=== PATIENT | male | born 1995 | race Caucasian/White ===

== ENCOUNTER → 2016-11-14 | Outpatient (CLI) | payer OTHER | END | disposition home or self-care (01) | LOC: C.RDSM 14:15 | PROVIDERS: ATTEND Family Medicine | DX: M25.562 Pain in left knee (principal) ==

== ENCOUNTER → 2016-11-19 | Outpatient (CLI) | payer OTHER ==
--- NOTE | 2016-11-19 19:24 | DIAGNOSTIC IMAGING REPORT ---
MRI OF THE LEFT KNEE CLINICAL HISTORY: Left knee pain. Osteochondral defect. COMPARISON STUDY: Progressive left knee dated 11/06/2016. TECHNIQUE: MRI of the left knee was performed utilizing proton density, T1, and T2-weighted sequences in the axial, sagittal, coronal planes. IV contrast was not administered for this examination. FINDINGS: Menisci: The medial and lateral menisci are intact. Ligaments: The anterior and posterior cruciate ligaments are intact. The medial and lateral collateral ligaments are within normal limits. Extensor mechanism: The extensor mechanism is intact. Hoffa's fat pad is normal in appearance. Articular cartilage and bone: There is a large osteochondral defect identified along the weightbearing surface of the medial femoral condyle. The defect measures 1.6 cm in AP diameter and 1.6 cm in width. There is fluid undercutting the fragment indicating instability. There is full-thickness cartilaginous fissuring identified along the lateral aspect of the defect seen on coronal image #16. There is also full-thickness cartilage loss along the posterior margin of the defect. Marrow edema is identified in the underlying medial femoral condyle. There is drop in T1 signal identified within the loose fragment which may represent developing osteonecrosis. The articular cartilage is well-maintained in the lateral and patellofemoral compartments. A calcified fabella is incidentally noted. Joint effusion: There is a small joint effusion. A calcified joint body is suggested superior to the tibial spine on coronal image #17. Soft tissues: The musculature surrounding the knee joint is normal in bulk and signal intensity. IMPRESSION: 1. There is a large osteochondral defect identified along the weightbearing surface of the medial femoral condyle. There is fluid undercutting the fragment indicating instability. 2. There is drop in T1 signal within the osteochondral fragment. This may represent developing osteonecrosis. 3. There is full-thickness cartilage loss along the lateral and posterior margins of the osteochondral defect. 4. There is marrow edema identified in the underlying medial femoral condyle. 5. The menisci, cruciate ligaments, and collateral ligament are maintained. 6. Small joint effusion. A small joint body is suspected. Electronically signed by: Walker Siddiqui M.D. 11/19/2016 7:22 PM Dictated Date/Time: 11/19/2016 7:15 PM
== END | disposition home or self-care (01) ==
LOC: C.MRI 18:18
PROVIDERS: ATTEND Family Medicine
DX: M95.8 Other specified acquired deformities of musculoskeletal system (principal); M21.962 Unspecified acquired deformity of left lower leg

== ENCOUNTER → 2017-02-27 | Outpatient (CLI) | payer OTHER ==
--- NOTE | 2017-02-27 12:18 | DIAGNOSTIC IMAGING REPORT ---
LEFT KNEE 3 VIEWS CLINICAL HISTORY: Left knee pain COMPARISON: None. DISCUSSION: There is a 24 mm osteochondral defect arising from the medial femoral condyle. There is equivocal trace joint effusion. IMPRESSION: 24 mm osteochondral defect arising from the medial femoral condyle. Electronically signed by: Lev Alford M.D. 02/27/2017 12:17 PM Dictated Date/Time: 02/27/2017 12:16 PM
== END | disposition home or self-care (01) ==
LOC: C.RDSM 12:04
PROVIDERS: ATTEND Orthopaedic Surgery
DX: M93.262 Osteochondritis dissecans, left knee (principal)

== ENCOUNTER → 2017-05-18 | Outpatient (CLI) | payer OTHER ==
--- NOTE | 2017-05-18 13:33 | DIAGNOSTIC IMAGING REPORT ---
AP STANDING VIEW OF BOTH KNEES; 3 VIEWS LEFT KNEE CLINICAL HISTORY: Osteochondral lesion of the left knee. FINDINGS: An AP standing view of both knees with crosstable lateral, tunnel, and sunrise views of the left knee are compared to study dated 02/27/2017 and correlated with MRI of the left knee dated 11/19/2016. The skeletal structures are well mineralized. No fracture is seen. The joint spaces are preserved. A 2.5 cm osteochondral lesion is again noted along the weightbearing surface of the medial femoral condyle with a surrounding rim of sclerosis. This is similar in appearance to the 02/27/2017 examination. No osteochondral defect is identified in the lateral compartment. A small joint effusion is suspected. The overlying soft tissues are within normal limits. Survey images of the right knee on the frontal view show no abnormality. IMPRESSION: 1. Joint effusion. No acute bony abnormality seen in the left knee. 2. A large osteochondral lesion is again seen in the medial compartment. This is similar appearance to previous. Electronically signed by: Walker Siddiqui M.D. 05/18/2017 1:31 PM Dictated Date/Time: 05/18/2017 1:28 PM
== END | disposition home or self-care (01) ==
LOC: C.RDSM 16:36
PROVIDERS: ATTEND Orthopaedic Surgery
DX: M93.262 Osteochondritis dissecans, left knee (principal)

== ENCOUNTER → 2017-11-12 | Outpatient (CLI) | payer OTHER ==
--- NOTE | 2017-11-12 09:24 | DIAGNOSTIC IMAGING REPORT ---
LEFT KNEE 4 VIEWS HISTORY: OSTEOCHONDRITIS DISSECANS, LEFT KNEE COMPARISON: Left knee 05/18/2017. FINDINGS: No change in the large osteochondral defect within the medial femoral condyle. This measures up to 2.5 cm. No evidence for progressive collapse of the medial femoral condyle. No acute fracture or dislocation. No significant joint effusion. No intra-articular loose bodies identified. Soft tissues are unremarkable. No radiopaque foreign bodies. IMPRESSION: No change in the large osteochondral defect within the left medial femoral condyle. Electronically signed by: David Alonzo M.D. 11/12/2017 9:23 AM Dictated Date/Time: 11/12/2017 9:19 AM
== END | disposition home or self-care (01) ==
LOC: C.RDSM 17:27
PROVIDERS: ATTEND Orthopaedic Surgery
DX: M93.262 Osteochondritis dissecans, left knee (principal)